=== PATIENT | female | born 1955 | race Hispanic/Latino ===

== ENCOUNTER → 2018-09-06 | Outpatient (CLI) | payer OTHER | END | disposition home or self-care (01) | LOC: OIH 15:27 | PROVIDERS: ATTEND Internal Medicine | DX: M13.842 Other specified arthritis, left hand (principal); M13.841 Other specified arthritis, right hand; M06.4 Inflammatory polyarthropathy | CPT/HCPCS: 73130 ==

== ENCOUNTER 2023-07-05 05:45 | Day surgery (SDC) | payer OTHER, MEDICARE ==
[2023-06-30 09:51] VITALS: BP 143/80; PULSE 76; RESP 19
[2023-06-30 09:57] LABS: BASOPHILS # (AUTO) 0.06 K/uL (0.00-0.20); BASOPHILS % (AUTO) 0.9 % (0.0-5.0); EOSINOPHILS # (AUTO) 0.39 K/uL (0.00-0.70); EOSINOPHILS % (AUTO) 5.9 % (0.0-8.0); HEMATOCRIT 41.6 % (36-48); IMMATURE GRANULOCYTE ABSOLUTE 0.01 K/uL (0-1); LYMPHOCYTES % (AUTO) 29.8 % (21.0-51.0); MEAN CORPUSCULAR HEMOGLOBIN 30.8 pg (27.0-33.0); MEAN CORPUSCULAR HGB CONC 32.5 g/dL (32.0-36.0); MEAN CORPUSCULAR VOLUME 94.8 fL (79-99); MONOCYTES # (AUTO) 0.4 K/uL (0.1-1.0); MONOCYTES % (AUTO) 6.6 % (3.0-13.0); NEUTROPHILS # (AUTO) 3.8 K/uL (1.8-7.7); NEUTROPHILS % (AUTO) 56.6 % (40.0-77.0); PLATELET COUNT (AUTO) 354 K/uL (130-400); RED BLOOD CELL COUNT(AUTO) 4.39 MIL/uL (4.00-5.50); RED CELL DISTRIBUTION WIDTH 13.8 % (11.0-15.5); WHITE BLOOD COUNT (AUTO) 6.6 K/uL (4.8-10.8)
[2023-06-30 10:09] LABS: INR <= 0.93 (0.85-1.15); PROTHROMBIN TIME 10.8 SEC (9.6-11.6)
[2023-06-30 10:10] LABS: PARTIAL THROMBOPLASTIN TIME 24.8 SEC (26.3-35.5)
[2023-06-30 10:24] LABS: ALBUMIN 3.8 g/dL (3.5-5.0); BILIRUBIN,TOTAL 0.5 mg/dL (0.2-1.0); CREATININE 0.8 mg/dL (0.5-1.0); POTASSIUM 3.8 mmol/L (3.5-5.1); TOTAL PROTEIN, SERUM 8.4 g/dL (6.0-8.3)
[2023-07-05] VITALS (18 sets, daily range): BP systolic 113–146; BP diastolic 50–75; PULSE 68–90; RESP 16–22
[~2023-07-05] VITALS: Ht 162.6 cm; Wt 89.2 kg
[~2023-07-05 05:45] MED LIST: [UNRECOGNIZED DRUG - CODE] PO
[2023-07-05] MEDS: LACTATED RINGERS 1000ML 1,000 ML IV ONE (06:58)
[2023-07-05] MEDS: MEROPENEM 1 GM VIAL ONE (06:58)
[2023-07-05] MEDS ORDERED: FAMOTIDINE 20MG VIAL IV ONE (07:00)
[2023-07-05] MEDS ORDERED: ACETAMINOPHEN 1,000 MG/100 ML VIAL IV ONE (07:00)
[2023-07-05] MEDS ORDERED: ROCURONIUM BROMIDE 10MG/1ML 5ML VL ONE (07:15)
[2023-07-05] MEDS ORDERED: LIDOCAINE HCL MPF 1% 5ML VIAL ONE (07:15)
[2023-07-05] MEDS ORDERED: FENTANYL CITRATE PF 50 MCG/1 ML 2ML VIAL ONE (07:15)
[2023-07-05] MEDS ORDERED: PROPOFOL 10 MG/ML 20ML VIAL IV ONE (07:15)
[2023-07-05] MEDS ORDERED: ONDANSETRON 4MG INJ ONE (08:02)
[2023-07-05] MEDS ORDERED: DEXAMETHASONE SOD PHOSPHATE 10MG/ML 1ML VIAL ONE (08:02)
[2023-07-05] MEDS: LIDOCAINE 1%-EPI 1:100,000 20 ML VIAL ONE (08:20)
[2023-07-05] MEDS: BUPIVACAINE/PF 0.5% 30ML VIAL ONE (08:20)
[2023-07-05] MEDS ORDERED: INDOCYANINE GREEN 25 MG VIAL IJ ONE (09:09)
[2023-07-05] MEDS ORDERED: GLYCOPYRROLATE 0.2 MG/ML 5 ML VIAL ONE (09:22)
[2023-07-05] MEDS ORDERED: NEOSTIGMINE METHYLSULFATE 1MG/ML IV ONE (09:22)
[2023-07-05] MEDS: MEPERIDINE-PF 25 MG/ML SYG ONE (10:42)
== END 2023-07-05 12:00 | disposition home or self-care (01) ==
LOC: DAH 05:45
PROVIDERS: ATTEND Surgery
DX: K38.8 Other specified diseases of appendix (principal); D12.1 Benign neoplasm of appendix; E03.9 Hypothyroidism, unspecified; Z82.49 Family history of ischemic heart disease and other diseases of the circulatory system; Z83.3 Family history of diabetes mellitus; Z80.9 Family history of malignant neoplasm, unspecified; Z79.1 Long term (current) use of non-steroidal anti-inflammatories (NSAID); Z79.890 Hormone replacement therapy; Z90.49 Acquired absence of other specified parts of digestive tract
CPT/HCPCS: 44238; 86900 ×2; 80053; 85025; 85610; 85730; 86850 ×2; 86901 ×2; 36415 ×2; 93005; A6260; J0665; A4663; J7030; J7120 ×2; A4344; A4215 ×2; J3490 ×5; J3010; J1100; J2704; J2405; J2710; J2175; J2185; C1769; A4649 ×2; A4223; A4222; A4221; A4600; G0168